=== PATIENT | female | born 1990 | race Caucasian/White ===

== ENCOUNTER → 2018-03-08 | Outpatient (REF) | payer BC ==
[2018-03-09 10:59] LABS: CHLAMYDIA DNA AMPLIFICATION NEGATIVE (NEGATIVE); GC DNA AMPLIFICATION NEGATIVE (NEGATIVE)
== END ==
LOC: M LAB REF 17:17
DX: Z11.3 Encounter for screening for infections with a predominantly sexual mode of transmission (principal)

== ENCOUNTER → 2019-07-17 | Outpatient (CLI) | payer BC ==
[2019-07-17 17:41] LABS: HEMATOCRIT 40.2 % (36.0-47.0); HEMOGLOBIN 13.2 g/dl (12.0-15.5); MEAN CORPUSCULAR HEMOGLOBIN 30.9 pg (27.0-33.0); MEAN CORPUSCULAR HGB CONC 32.8 g/dl (32.0-36.5); MEAN CORPUSCULAR VOLUME 94.1 fl (80.0-96.0); PLATELET COUNT, AUTOMATED 243 10^3/uL (150-450); RED BLOOD COUNT 4.27 10^6/uL (4.00-5.40); WHITE BLOOD COUNT 11.1 10^3/uL (4.0-10.0)
[2019-07-17 18:13] LABS: FREE T4 1.11 NG/DL (0.76-1.46)
[2019-07-17 18:17] LABS: FOLLICLE STIMULATING HORMONE 6.6 mIU/mL; LUTEINIZING HORMONE 10.9 mIU/mL
[2019-07-17 18:34] LABS: HCG, SERUM QUALITATIVE NEGATIVE (NEGATIVE)
[2019-07-20 00:07] LABS: TESTOSTERONE FREE (DIRECT) 3.7 pg/mL (0.0-4.2)
== END ==
LOC: M SMT 15:06
PROVIDERS: ATTEND Advanced Practice Midwife
DX: N92.0 Excessive and frequent menstruation with regular cycle (principal)

== ENCOUNTER 2019-11-13 06:37 | Emergency (ER) | payer BC ==
[~2019-11-13] VITALS: Ht 165.1 cm; Wt 77.8 kg
[2019-11-13] MEDS ORDERED: ACETAMINOPHEN 325 MG TAB PO ONE (07:15)
[2019-11-13 07:39] LABS: INFLUENZA A AMPLIFICATION NEGATIVE (NEGATIVE); INFLUENZA B AMPLIFICATION POSITIVE (NEGATIVE)
[2019-11-13 08:13] VITALS: BP 110/68
== END 2019-11-13 08:21 | disposition home or self-care (01) ==
LOC: M ED 06:37
DX: J10.1 Influenza due to other identified influenza virus with other respiratory manifestations (principal); G43.909 Migraine, unspecified, not intractable, without status migrainosus